=== PATIENT | male | born 1950 | race Caucasian/White ===

== ENCOUNTER 2022-01-08 12:13 | Outpatient (CLI) | payer MEDICARE, OTHER, SELFPAY ==
--- NOTE | ~2022-01-08 | XR_ITS ---
EXAMINATION:[id number] DATE: 01/08/2022 12:41 INDICATION: Neck pain TECHNIQUE: AP, lateral, and odontoid views of the cervical spine are provided. COMPARISON: None FINDINGS: Alignment is normal. The odontoid is intact. No fracture is identified. Vertebral body heig hts are maintained. There is severe loss of intervertebral disc space height at C5-6 and C6-7. Small degenerative osteophytes project from the anterior endplates of multiple vertebral bodies. 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 Prevertebral soft tissues are normal. IMPRESSION: 1. Severe cervical spondylosis without acute findings. Reviewed, dictated and finalized at location B.
== END 2022-01-08 12:14 | disposition home or self-care (01) ==
LOC: CHSIMG 12:19
PROVIDERS: PCP Internal Medicine; Visit Provider Internal Medicine
DX: M54.2 Cervicalgia (principal)
CPT/HCPCS: 72040

== ENCOUNTER 2022-08-02 10:21 | Emergency (ER) | payer MEDICARE, OTHER, SELFPAY ==
--- NOTE | ~2022-08-02 | XR_ITS ---
EXAMINATION: XR ribs RT 2V DATE: 08/02/2022 10:53 INDICATION: Lower lateral sided right rib pain post fall TECHNIQUE: 3 views of the right ribs were obtained. COMPARISON: Chest radiograph dated 05/09/19 FINDINGS: Minimally displaced lateral right ninth and 10th rib fractures. No pneumothorax. Small calcified nodu les in the bilateral upper lung zones consistent with old granulomatous disease. No focal airspace op acities, pulmonary edema or pleural effusion. Cardiomediastinal silhouette is normal. IMPRESSION: 1. Minimally displaced lateral right ninth and 10th rib fractures. No pneumothorax or other acute car diopulmonary disease. Reviewed, dictated and finalized at location A. IMPRESSION: 1. Minimally displaced lateral right ninth and 10th rib fractures. No pneumotho rax or other acute cardiopulmonary disease.
--- NOTE | 2022-08-02 10:26 | ED.FALL ---
HPI - Fall General Chief Complaint: Back Pain/Injury Stated Complaint: FALL BACK PAIN Time Seen by Provider: 08/02/22 10:26 Source: patient and RN notes reviewed Mode of arrival: ambulatory Limitations: no limitations History of Present Illness HPI Narrative: patient states he slipped and fell off a 6 ft ladder. He said he was only on the 2nd or 3rd rung. When he fell he fell onto a tool box on his right ribs. He was fine but then sneezed last night and had excruciating pain in his right rib area. MD complaint: fall Onset (ago): day(s) (2) Fall from: from height (distance) (2.5') Fall witnessed: no Place fall occurred: home Loss of consciousness: none Prolonged down time: no Symptoms prior to fall: none Context: tripped/slipped Location of injury: back ( posterior right rib) Severity: moderate Quality: sharp and stabbing Associated symptoms (after fall): denies Related Data Home Medications Medication Instructions Recorded Confirmed atorvastatin 20 mg tablet 20 mg PO DAILY 08/02/22 08/02/22 glipizide 5 mg tablet 5 mg PO BID 08/02/22 08/02/22 metformin 1,000 mg tablet 1,000 mg PO DAILY 08/02/22 08/02/22 omeprazole 20 mg capsule,delayed 20 mg PO DAILY 08/02/22 08/02/22 release Allergies Allergy/AdvReac Type Severity Reaction Status Date / Time No Known Allergies Allergy Verified 08/02/22 10:39 Review of Systems Review of Systems: All systems reviewed & are unremarkable except as noted in HPI and below PMFSH Past Medical History Medical History (Updated 08/02/22 @ 11:10 by Erasmo Golden MD) Type 2 diabetes mellitus Surgical History Surgical History (Updated 08/02/22 @ 10:34 by Erasmo Golden MD) H/O inguinal hernia repair H/O repair of rotator cuff Social History Social History (Updated 08/02/22 @ 10:34 by Erasmo Golden MD) Smoking status: Never smoker Exam Const: General: healthy appearing, no acute distress and alert Nutritional Appearance: well nourished and thin Orientation/consciousness: patient oriented x3 Limitations: no limitations HENMT: Head: normal to inspection Ears: external ears normal Eyes: Conjunctivae: conjunctivae normal Pupils: Equal, round and reactive pupils present EOM: EOMs intact bilaterally Neck: Neck: normal visual inspection Chest: Chest palpation & inspection: tenderness rib right posterior-axillary line involving the 8th rib, involving the 9th rib and involving the 10th rib Resp: Effort & Inspection: normal respiratory effort ( but hurts to take a deep breath) Auscultation: clear to auscultation bilaterally Cardio: Rate: regular rate Rhythm: regular rhythm GI: GI Palp: Yes Soft to palpation and No Tenderness to palpation present (GI) Auscultation: normal bowel sounds Back/Spine/Pelvis: Cervical Spine: cervical ROM normal Thoracic/Lumbar Spine: thoraco-lumbar ROM normal Skin: General skin exam: normal color Rashes: no rashes Neuro: General: patient oriented x3, moves all extremities, no focal motor deficits and CN's II-XI intact bilaterally Speech: normal speech Gait exam (Neuro): Normal gait present Extrem: General: normal to inspection and no clubbing, cyanosis or edema Psych: Mental Status: mental status grossly normal Affect: normal affect Attitude: cooperative Course Vital Signs Vital signs: Vital Signs Temperature 36.4 C 08/02/22 10:33 Pulse Rate 63 08/02/22 10:33 Respiratory Rate 16 08/02/22 10:33 Blood Pressure 153/81 H 08/02/22 10:33 Pulse Oximetry 99 08/02/22 10:33 Oxygen Delivery Room Air 08/02/22 10:33 Temperature 36.4 C 08/02/22 11:15 Pulse Rate 63 08/02/22 11:15 Respiratory Rate 16 08/02/22 11:15 Blood Pressure 153/81 H 08/02/22 11:15 Pulse Oximetry 99 08/02/22 11:15 Oxygen Delivery Room Air 08/02/22 11:15 Discharge Plan Discharge Clinical Impression: Fracture of rib Qualifiers: Encounter type: initial encounter Rib fracture type: multiple ribs Fracture typ
[2022-08-02 10:33] VITALS: BP 153/81; PULSE 63; RESP 16; TEMP 36.4; O2SAT 99
[2022-08-02 11:15] VITALS: BP 153/81; PULSE 63; RESP 16; TEMP 36.4; O2SAT 99
== END 2022-08-02 11:20 | disposition home or self-care (01) ==
PROVIDERS: Emergency Provider Emergency Medicine; PCP Internal Medicine
DX: S22.41XA Multiple fractures of ribs, right side, initial encounter for closed fracture (principal); W11.XXXA Fall on and from ladder, initial encounter; E11.9 Type 2 diabetes mellitus without complications
CPT/HCPCS: 71100; 99283